=== PATIENT | male | born 1995 | race Caucasian/White ===

== ENCOUNTER 2018-10-19 10:34 | Emergency (ER) | payer OTHER ==
[~2018-10-19] VITALS: Ht 182.9 cm; Wt 113.0 kg
[2018-10-19 10:50] VITALS: TEMP 97.7
[2018-10-19] MEDS ORDERED: CEPHALEXIN500 M1 PO (12:05)
[2018-10-19 12:40] VITALS: BP 125/67; PULSE 67
== END 2018-10-19 12:42 | disposition home or self-care (01) ==
LOC: COL.ER 10:34
DX: S61.042A Puncture wound with foreign body of left thumb without damage to nail, initial encounter (principal); Z90.49 Acquired absence of other specified parts of digestive tract; W29.4XXA Contact with nail gun, initial encounter; Y92.59 Other trade areas as the place of occurrence of the external cause

== ENCOUNTER 2018-11-29 07:51 | Emergency (ER) | payer SELFPAY ==
[~2018-11-29] VITALS: Ht 182.9 cm; Wt 113.6 kg
[~2018-11-29 07:51] MED LIST: CEPHALEXIN500 M1 PO
[2018-11-29 08:03] VITALS: TEMP 98.4
[2018-11-29 08:59] LABS: BASO % 0.2 % (0.0-2.0); EOS % 0.2 % (0-4.0); GRAN # 8.3 (1.4-6.5); GRAN % 80.8 % (42.2-75.2); HEMOGLOBIN 16.1 g/dl (13.5-18.0); LYMPH # 1.2 (1.2-3.4); LYMPH % 11.8 % (20.0-51.0); MEAN CELL VOLUME 82 fl (80.0-100.0); MEAN CORPUSCULAR HEMOGLOBIN 29 pg (27.0-31.0); MEAN CORPUSCULAR HGB CONC 35 g/dl (33.0-37.0); MEAN PLATELET VOLUME 9.3 fl (7.4-10.4); MONO # 0.7 (0.1-0.6); MONO % 6.8 % (1.7-9.3); PLATELET COUNT 240 K/mm3 (130-400); RED BLOOD COUNT 5.59 M/mm3 (4.20-5.60); REDCELL DISTRIBUTION WIDTH-CV 12.4 % (11.5-14.5)
[2018-11-29 09:13] LABS: ALBUMIN 4.1 gm/dL (3.5-5.0); BILIRUBIN,TOTAL 1.7 mg/dL (0.0-1.0); C-REACTIVE PROTEIN 1.1 mg/dL (0.0-0.9); CREATININE, serum 1.02 (0.66-1.25); POTASSIUM 3.8 mmol/L (3.4-5.0); TOTAL PROTEIN 7.4 gm/dL (6.4-8.2)
[2018-11-29 10:07] LABS: COLLECTION METHOD CLEAN CATCH
[2018-11-29 10:15] LABS: MUCOUS Present /lpf; PH 5 (5-8); SQUAMOUS EPITHELIAL 0-2 /hpf; URINE APPEARANCE Hazy; URINE BACTERIA None Seen /hpf; URINE BILIRUBIN Negative (NEGATIVE); URINE BLOOD Negative (NEGATIVE); URINE COLOR Yellow; URINE GLUCOSE Negative (NEGATIVE); URINE KETONE 1+ (NEGATIVE); URINE LEUKOCYTE ESTERASE Negative (NEGATIVE); URINE NITRATE Negative (NEGATIVE); URINE PROTEIN(semi-quant) Negative (NEGATIVE); URINE RBC 0-2 /hpf
[2018-11-29] MEDS ORDERED: PRIL40 PO (10:18)
[2018-11-29 10:50] VITALS: BP 99/53; PULSE 67
== END 2018-11-29 10:56 | disposition home or self-care (01) ==
LOC: COL.ER 07:51
PROVIDERS: Physician Assistant
DX: R11.10 Vomiting, unspecified (principal); R10.9 Unspecified abdominal pain; Z90.89 Acquired absence of other organs
CPT/HCPCS: J1885; J2060; J2405; J7030

== ENCOUNTER 2019-02-06 01:07 | Emergency (ER) | payer SELFPAY ==
[~2019-02-06] VITALS: Ht 180.3 cm; Wt 109.1 kg
[~2019-02-06 01:07] MED LIST changes: +PRIL40 PO
[2019-02-06 01:15] VITALS: BP 121/76; PULSE 73; TEMP 98.6
[2019-02-06] MEDS ORDERED: NIZORAL CR 60GM TOP (01:28)
== END 2019-02-06 01:40 | disposition home or self-care (01) ==
LOC: COL.ER 01:07
DX: B35.6 Tinea cruris (principal); Z90.49 Acquired absence of other specified parts of digestive tract

== ENCOUNTER 2019-05-03 15:07 | Emergency (ER) | payer SELFPAY ==
[~2019-05-03] VITALS: Ht 182.9 cm; Wt 111.0 kg
[~2019-05-03 15:07] MED LIST changes: +NIZORAL CR 60GM TOP
[2019-05-03 15:16] VITALS: TEMP 97.4
[2019-05-03] MEDS ORDERED: PERCOCET 325 MG1 TA2 PO (20:33)
[2019-05-03 20:40] VITALS: BP 128/72; PULSE 76
== END 2019-05-03 20:46 | disposition home or self-care (01) ==
LOC: COL.ER 15:07
DX: S22.080A Wedge compression fracture of T11-T12 vertebra, initial encounter for closed fracture (principal); S32.010A Wedge compression fracture of first lumbar vertebra, initial encounter for closed fracture; V49.9XXA Car occupant (driver) (passenger) injured in unspecified traffic accident, initial encounter

== ENCOUNTER 2019-05-06 03:09 | Emergency (ER) | payer SELFPAY ==
[~2019-05-06] VITALS: Ht 182.9 cm; Wt 111.4 kg
[~2019-05-06 03:09] MED LIST changes: +PERCOCET 325 MG1 TA2 PO
[2019-05-06 04:00] VITALS: BP 112/70; PULSE 76; TEMP 98.9
[2019-05-06] MEDS ORDERED: ZOFRAN ODT4 MG SL (04:04)
== END 2019-05-06 04:15 | disposition home or self-care (01) ==
LOC: COL.ER 03:09
DX: S22.080A Wedge compression fracture of T11-T12 vertebra, initial encounter for closed fracture (principal); S32.010A Wedge compression fracture of first lumbar vertebra, initial encounter for closed fracture; T39.396A Underdosing of other nonsteroidal anti-inflammatory drugs [NSAID], initial encounter; Z90.89 Acquired absence of other organs; V89.2XXA Person injured in unspecified motor-vehicle accident, traffic, initial encounter
CPT/HCPCS: J1885